=== PATIENT | female | born 1970 | race Caucasian/White ===

== ENCOUNTER 2018-10-19 16:34 | Observation (INO) | payer BC, SELFPAY ==
[2018-10-19 16:41] VITALS: BP 126/82; PULSE 66; RESP 16; TEMP 36.7; O2SAT 98; BMI 36.6
--- NOTE | 2018-10-19 16:44 | PC.NURSE ---
pt arrived with a splint to left leg and in a clamshell stretcher.
--- NOTE | 2018-10-19 16:55 | DI.RAD.S_ITS ---
PROCEDURE: XR KNEE RT 1TO2V INDICATIONS: rolled ankle,c/o ankle and knee pain,unable to bear weight TECHNIQUE: 2 views of the knee were acquired. COMPARISON: None. FINDINGS: Bones: No fractures or dislocations. No suspicious bony lesions. Scattered degenerative subchondral sclerosis and spurring. Minimal narrowing of the lateral joint space. Soft tissues: No joint effusion. No suspicious soft tissue calcifications. IMPRESSION: No fracture. Mild right knee joint degeneration. Dictated by: Og Martel M.D. on 10/19/2018 at 17:35 Approved by: Og Martel M.D. on 10/19/2018 at 17:37
--- NOTE | 2018-10-19 16:55 | DI.RAD.S_ITS ---
PROCEDURE: XR ANKLE RT 2V INDICATIONS: rolled ankle,c/o ankle and knee pain,unable to bear weight TECHNIQUE: 2 views of the ankle were acquired. COMPARISON: None. FINDINGS: Bones: Medial and lateral malleolar fractures are present with gross articular surface incongruity. There is slight widening of the medial tibiotalar joint space. Suspect posterior malleolar fracture Soft tissues: Associated soft tissue swelling IMPRESSION: Trimalleolar fracture as above. Dictated by: Og Martel M.D. on 10/19/2018 at 17:37 Approved by: Og Martel M.D. on 10/19/2018 at 17:38
--- NOTE | 2018-10-19 18:51 | ED.LOWEXIN ---
HPI - Extremity Injury (Lower) <ALLY Villegas - Last Filed: 10/19/18 21:37> General Chief Complaint: Extremity Injury, Lower Stated Complaint: GLF Time Seen by Provider: 10/19/18 17:39 Source: patient Mode of arrival: EMS Limitations: physical limitation History of Present Illness HPI Narrative: 48-year-old female with history of hypertension and high cholesterol, presents emergency department today complaining of right ankle and knee pain. She states she was stepping off a log when her ankle inverted, she immediately heard a pop and was unable to put any weight on it. She complains of associated swelling and bruising. She also states that her kneecap dislocated which has happened in the past, she was able to straighten her leg and her kneecap relocated. She denies any dizziness, syncope, chest pain, shortness of breath, numbness or tingling in her right leg, denies any other injuries or hitting her head. Patient denies taking any blood thinners. Related Data Home Medications Medication Instructions Recorded Confirmed cetirizine [Zyrtec] 10 mg PO DAILY PRN 10/19/18 10/19/18 guaifenesin [Mucinex] 600 mg PO BID PRN 10/19/18 10/19/18 metoprolol succinate 100 mg PO DAILY 10/19/18 10/19/18 pravastatin 20 mg PO DAILY 10/19/18 10/19/18 spironolactone 25 mg PO BID 10/19/18 10/19/18 Previous Rx's Medication Instructions Recorded aspirin 81 mg PO BID #60 tab 10/20/18 ondansetron 4 mg PO Q4HR PRN #10 tab 10/20/18 oxycodone 5 mg PO Q3HR PRN #30 tab 10/20/18 polyethylene glycol 3350 17 gm PO DAILY #10 ea 10/20/18 Allergies Allergy/AdvReac Type Severity Reaction Status Date / Time No Known Drug Allergies Allergy Verified 10/19/18 16:40 Review of Systems <ALLY Villegas - Last Filed: 10/19/18 21:37> Review of Systems Narrative: REVIEW OF SYSTEMS: GENERAL: Denies fever or chills. HENT: No head trauma. EYES: No double vision or vision loss. CARDIOVASCULAR: No chest pain or syncope. RESPIRATORY: No shortness of breath or cough. GASTROINTESTINAL: No nausea, vomiting, diarrhea, or constipation. GENITOURINARY: No flank pain or dysuria. MUSCULOSKELETAL: Complains of right knee and ankle pain, see HPI. INTEGUMENTARY: No rash, lesions, or pruritus. NEURO: No numbness, tingling. PSYCH: No behavior or mood changes. PFSH <ALLY Villegas - Last Filed: 10/19/18 21:37> Medical History Arthritic-like pain (Acute) Hyperlipidemia (Acute) Hypertension (Acute) Seasonal allergies (Acute) Tinnitus of both ears (Acute) Social History household members: spouse Smoking Status: Never smoker Social History household members: spouse Smoking Status: Never smoker Exam <ALLY Villegas - Last Filed: 10/19/18 21:37> Initial Vital Signs Initial Vital Signs: Vital Signs Temperature 98.1 F 10/19/18 16:41 Pulse Rate 66 10/19/18 16:41 Respiratory Rate 16 10/19/18 16:41 Blood Pressure 126/82 10/19/18 16:41 Pulse Oximetry 98 10/19/18 16:41 PHYSICAL EXAMINATION: GENERAL: Well groomed, alert, and cooperative. Answers questions promptly and appropriately. Vital signs noted. HENT: Normocephalic, atraumatic. EYES: Symmetrical, sclera white, no periorbital swelling. CARDIOVASCULAR: S1 and S2 sounds normal. Regular rate and rhythm, no murmurs, clicks, or bruits. No pedal edema. RESPIRATORY: Normal respiratory rate, trachea midline, airway patent. No stridor, nasal flaring or accessory muscle use. Lungs are clear in all george. MUSCULOSKELETAL: Right patella tenderness to palpation, moderate right knee effusion without erythema or ecchymosis. Deformity to right ankle, significant bruising to medial and lateral malleoli-limited range of motion and strength due to significant pain with movement, pedal pulses 2+ bilaterally. No lesions noted to her right leg. Equal tone and mass bilaterally. No spinal tenderness or deformities. EXTREMITIES: CMS intact. SKIN: Warm, dry, soft, appropriate color for ethnicity. No lesions, rashes, or wounds. NEURO: Alert and Oriented X 3. No sensory deficits. PSYCH: Appropriate affect and mood. <Zulma Dumont DO - Last Filed: 10/23/18 05:39> Initial Vital Signs Initial Vital Signs: Vital Signs Temperature 98.1 F 10/19/18 16:41 Pulse Rate 66 10/19/18 16:41 Respiratory Rate 16 10/19/18 16:41 Blood Pressure 126/82 10/19/18 16:41 Pulse Oximetry 98 10/19/18 16:41 Procedures <ALLY Villegas - Last Filed: 10/19/18 21:37> Orthopedic Splinting/Casting R Ankle: Side: right Lower Extremity Injury Location: lower leg and ankle Lower Extremity Immobilizer: posterior splint and stirrup splint Post splinting neuro exam: intact Post splinting vascular exam: intact Placed by: Nursing Course <ALLY Villegas - Last Filed: 10/19/18 21:37> Course Course Narrative: Dr. Vasquez was consulted after x-ray report was given. At 1840 Dr. Vasquez who is available to speak with patient and family, patient decided to be admitted for surgery in the morning as she is from [place] and does not plan to return home for another week. At this time, an IV was started, pain medications were given, and a splint was placed per Dr. Vasquez (short leg with stirrup). Orders Ordered: Discontinued Medications Acetaminophen (Tylenol) 650 mg PO Q4HR PRN PRN Reason: As Needed for Fever/Mild Pain Last Admin: 10/20/18 00:14 Dose: 650 mg Documented by: KGALLAG Hydrocodone Bitart/Acetaminophen ([place] 5/325) 1 tab PO Q4HR PRN PRN Reason: Pain, Moderate (4-6) Aspirin (Aspirin Ec) 81 mg PO BID FRANCI Last Admin: 10/20/18 20:45 Dose: 81 mg Documented by: AMIRA Benzocaine (Cepacol Lozenge) 1 each PO PRN PRN PRN Reason: Sore Throat Bisacodyl (Dulcolax) 10 mg [place] PRN PRN PRN Reason: Constipation Bupivacaine HCl/Epinephrine Bitart (Sensorcaine 0.5% W/ Epi (Pf)) 30 ml INJ NOW ONE Stop: 10/20/18 09:39 Last Admin: 10/20/18 09:38 Dose: 30 ml Documented by: RAYA Fentanyl (Sublimaze) 50 mcg IV Q5MIN PRN PRN Reason: Pain, Severe (7-10) Fentanyl (Sublimaze) 50 mcg IV Q5MIN PRN PRN Reason: Pain, Moderate (4-6) Guaifenesin (Mucinex) 600 mg PO BID PRN PRN Reason: Allergy Symptoms Last Admin: 10/20/18 13:51 Dose: 600 mg Documented by: GUTIERREZ Hydromorphone HCl (Dilaudid) 0.5 mg IV NOW ONE Stop: 10/19/18 18:57 Last Admin: 10/19/18 19:52 Dose: 0.5 mg Documented by: NANI Hydromorphone HCl (Dilaudid) 0.5 mg IV Q5MIN PRN PRN Reason: Pain, Moderate (4-6) Hydroxyzine HCl (Vistaril) 25 mg IM NOW PRN PRN Reason: Pain, Mild (1-3) Hydroxyzine Pamoate (Vistaril) 25 mg PO Q4HR PRN PRN Reason: Nausea Last Admin: 10/20/18 00:14 Dose: 25 mg Documented by: KGALLRONAL Cefazolin Sodium/Dextrose (Ancef) 2 gm in 100 mls @ 200 mls/hr IV NOW ONE Stop: 10/19/18 20:06 Last Infusion: 10/19/18 19:59 Dose: 0 mls/hr Documented by: Admin: 10/19/18 19:52 Dose: 200 mls/hr Documented by: NANI Lactated Ringer's (Lactated Ringers) 1,000 mls @ 75 mls/hr IV CONT FRANCI Last Admin: 10/19/18 23:07 Dose: 75 mls/hr Documented by: SAVANA Lactated Ringer's (Lactated Ringers) 1,000 mls @ 42 mls/hr IV CONT FRANCI Last Infusion: 10/20/18 11:30 Dose: 0 mls/hr Documented by: Admin: 10/20/18 08:40 Dose: 42 mls/hr Documented by: JOSEPH Cefazolin Sodium/Dextrose (Ancef) 2 gm in 100 mls @ 200 mls/hr IV NOW ONE Stop: 10/20/18 09:14 Last Infusion: 10/20/18 08:42 Dose: 0 mls/hr Documented by: Admin: 10/20/18 08:38 Dose: 200 mls/hr Documented by: GEORGES Acetaminophen (Ofirmev) 1,000 mg in 100 mls @ 400 mls/hr IV NOW ONE Stop: 10/20/18 09:47 Last Admin: 10/20/18 13:41 Dose: Not Given Documented by: GUTIERREZ Lactated Ringer's (Lactated Ringers) 1,000 mls @ 125 mls/hr IV CONT [facility] Last Admin: 10/20/18 12:19 Dose: 125 mls/hr Documented by: GUTIERREZ Cefazolin Sodium/Dextrose (Ancef) 1 gm in 50 mls @ 200 mls/hr IV Q8H [facility] Stop: 10/21/18 01:14 Last Infusion: 10/20/18 18:07 Dose: 0 mls/hr Documented by: Admin: 10/20/18 17:22 Dose: 200 mls/hr Documented by: AMIRA Loratadine (Claritin) 10 mg PO DAILY PRN PRN Reason: Allergic Symptoms Last Admin: 10/20/18 13:53 Dose: 10 mg Documented by: GUTIERREZ Lorazepam (Ativan) 0.5 mg IV Q6HR PRN PRN Reason: nausea/vomiting Lorazepam (Ativan) 0.5 mg PO Q6HR PRN PRN Reason: Anxiety Last Admin: 10/20/18 20:47 Dose: 0.5 mg Documented by: AMIRA Magnesium Hydroxide (Milk Of Magnesia) 30 ml PO BEDTIME [facility] Last Admin: 10/20/18 20:45 Dose: Not Given Documented by: AMIRA Meperidine HCl (Demerol) 25 mg IV Q5MIN PRN PRN Reason: Pain or shivering Metoclopramide HCl (Reglan) 10 mg IV NOW PRN PRN Reason: Nausea And Vomiting Metoprolol Succinate (Toprol Xl) 100 mg PO DAILY [facility] Midazolam HCl (Versed) 2 mg IV NOW ONE Stop: 10/20/18 07:25 Last Admin: 10/20/18 13:40 Dose: Not Given Documented by: GUTIERREZ Ondansetron HCl (Zofran) 4 mg IV NOW ONE Stop: 10/19/18 18:57 Last Admin: 10/19/18 19:52 Dose: 4 mg Documented by: NANI Ondansetron HCl (Zofran) 4 mg IV Q4HR PRN PRN Reason: Nausea And Vomiting Ondansetron HCl (Zofran) 4 mg IV NOW PRN PRN Reason: Nausea And Vomiting Ondansetron HCl (Zofran Odt) 4 mg PO Q4HR PRN PRN Reason: Nausea And Vomiting Oxycodone HCl (Percolone) 5 mg PO Q3HR PRN PRN Reason: Pain, Moderate (4-6) Oxycodone HCl (Percolone) 5 mg PO Q30MIN PRN PRN Reason: Mild or moderate pain Oxycodone HCl (Percolone) 5 mg PO Q3HR PRN PRN Reason: Pain, Moderate (4-6) Last Admin: 10/20/18 17:48 Dose: 5 mg Documented by: Admin: 10/20/18 12:23 Dose: 5 mg Documented by: GUTIERREZ Polyethylene Glycol (Miralax) 17 gm PO DAILY [facility] Pravastatin Sodium (Pravachol) 20 mg PO DAILY [facility] Sodium Chloride (Normal Saline 0.9% Flush) 10 ml IV PRN PRN PRN Reason: Flush Sodium Chloride (Normal Saline 0.9% Flush) 10 ml IV BID [facility] Last Admin: 10/20/18 13:41 Dose: Not Given Documented by: GUTIERREZ Spironolactone (Aldactone) 25 mg PO BID [facility] Last Admin: 10/20/18 20:46 Dose: 25 mg Documented by: AMIRA Reevaluation(s) Reevaluation #1: Patient re-evaluated after splint placement, CMS intact. Consultations Consultation #1: Patient was staffed with Dr. Julia Vasquez, orthopedic surgeon was consulted. Vital Signs Vital signs: Vital Signs - 8 hr 10/19/18 16:41 Temperature 98.1 F Pulse Rate 66 Respiratory Rate 16 Blood Pressure 126/82 Pulse Oximetry 98 <Zulma Dumont, DO - Last Filed: 10/23/18 05:39> Orders Ordered: Discontinued Medications Acetaminophen (Tylenol) 650 mg PO Q4HR PRN PRN Reason: As Needed for Fever/Mild Pain Last Admin: 10/20/18 00:14 Dose: 650 mg Documented by: KGALLAG Hydrocodone Bitart/Acetaminophen ([place] 5/325) 1 tab PO Q4HR PRN PRN Reason: Pain, Moderate (4-6) Aspirin (Aspirin Ec) 81 mg PO BID FRANCI Last Admin: 10/20/18 20:45 Dose: 81 mg Documented by: AMIRA Benzocaine (Cepacol Lozenge) 1 each PO PRN PRN PRN Reason: Sore Throat Bisacodyl (Dulcolax) 10 mg [place] PRN PRN PRN Reason: Constipation Bupivacaine HCl/Epinephrine Bitart (Sensorcaine 0.5% W/ Epi (Pf)) 30 ml INJ NOW ONE Stop: 10/20/18 09:39 Last Admin: 10/20/18 09:38 Dose: 30 ml Documented by: RAYA Fentanyl (Sublimaze) 50 mcg IV Q5MIN PRN PRN Reason: Pain, Severe (7-10) Fentanyl (Sublimaze) 50 mcg IV Q5MIN PRN PRN Reason: Pain, Moderate (4-6) Guaifenesin (Mucinex) 600 mg PO BID PRN PRN Reason: Allergy Symptoms Last Admin: 10/20/18 13:51 Dose: 600 mg Documented by: GUTIERREZ Hydromorphone HCl (Dilaudid) 0.5 mg IV NOW ONE Stop: 10/19/18 18:57 Last Admin: 10/19/18 19:52 Dose: 0.5 mg Documented by: NANI Hydromorphone HCl (Dilaudid) 0.5 mg IV Q5MIN PRN PRN Reason: Pain, Moderate (4-6) Hydroxyzine HCl (Vistaril) 25 mg IM NOW PRN PRN Reason: Pain, Mild (1-3) Hydroxyzine Pamoate (Vistaril) 25 mg PO Q4HR PRN PRN Reason: Nausea Last Admin: 10/20/18 00:14 Dose: 25 mg Documented by: KGALLAG Cefazolin Sodium/Dextrose (Ancef) 2 gm in 100 mls @ 200 mls/hr IV NOW ONE Stop: 10/19/18 20:06 Last Infusion: 10/19/18 19:59 Dose: 0 mls/hr Documented by: Admin: 10/19/18 19:52 Dose: 200 mls/hr Documented by: NANI Lactated Ringer's (Lactated Ringers) 1,000 mls @ 75 mls/hr IV CONT FRANCI Last Admin: 10/19/18 23:07 Dose: 75 mls/hr Documented by: SAVANA Lactated Ringer's (Lactated Ringers) 1,000 mls @ 42 mls/hr IV CONT FRANCI Last Infusion: 10/20/18 11:30 Dose: 0 mls/hr Documented by: Admin: 10/20/18 08:40 Dose: 42 mls/hr Documented by: JOSEPH Cefazolin Sodium/Dextrose (Ancef) 2 gm in 100 mls @ 200 mls/hr IV NOW ONE Stop: 10/20/18 09:14 Last Infusion: 10/20/18 08:42 Dose: 0 mls/hr Documented by: Admin: 10/20/18 08:38 Dose: 200 mls/hr Documented by: GEORGES Acetaminophen (Ofirmev) 1,000 mg in 100 mls @ 400 mls/hr IV NOW ONE Stop: 10/20/18 09:47 Last Admin: 10/20/18 13:41 Dose: Not Given Documented by: GUTIERREZ Lactated Ringer's (Lactated Ringers) 1,000 mls @ 125 mls/hr IV CONT FRANCI Last Admin: 10/20/18 12:19 Dose: 125 mls/hr Documented by: GUTIERREZ Cefazolin Sodium/Dextrose (Ancef) 1 gm in 50 mls @ 200 mls/hr IV Q8H [facility]ANCI Stop: 10/21/18 01:14 Last Infusion: 10/20/18 18:07 Dose: 0 mls/hr Documented by: Admin: 10/20/18 17:22 Dose: 200 mls/hr Documented by: AMIRA Loratadine (Claritin) 10 mg PO DAILY PRN PRN Reason: Allergic Symptoms Last Admin: 10/20/18 13:53 Dose: 10 mg Documented by: GUTIERREZ Lorazepam (Ativan) 0.5 mg IV Q6HR PRN PRN Reason: nausea/vomiting Lorazepam (Ativan) 0.5 mg PO Q6HR PRN PRN Reason: Anxiety Last Admin: 10/20/18 20:47 Dose: 0.5 mg Documented by: AMIRA Magnesium Hydroxide (Milk Of Magnesia) 30 ml PO BEDTIME FRANCI Last Admin: 10/20/18 20:45 Dose: Not Given Documented by: AMIRA Meperidine HCl (Demerol) 25 mg IV Q5MIN PRN PRN Reason: Pain or shivering Metoclopramide HCl (Reglan) 10 mg IV NOW PRN PRN Reason: Nausea And Vomiting Metoprolol Succinate (Toprol Xl) 100 mg PO DAILY [facility] Midazolam HCl (Versed) 2 mg IV NOW ONE Stop: 10/20/18 07:25 Last Admin: 10/20/18 13:40 Dose: Not Given Documented by: GUTIERREZ Ondansetron HCl (Zofran) 4 mg IV NOW ONE Stop: 10/19/18 18:57 Last Admin: 10/19/18 19:52 Dose: 4 mg Documented by: NANI Ondansetron HCl (Zofran) 4 mg IV Q4HR PRN PRN Reason: Nausea And Vomiting Ondansetron HCl (Zofran) 4 mg IV NOW PRN PRN Reason: Nausea And Vomiting Ondansetron HCl (Zofran Odt) 4 mg PO Q4HR PRN PRN Reason: Nausea And Vomiting Oxycodone HCl (Percolone) 5 mg PO Q3HR PRN PRN Reason: Pain, Moderate (4-6) Oxycodone HCl (Percolone) 5 mg PO Q30MIN PRN PRN Reason: Mild or moderate pain Oxycodone HCl (Percolone) 5 mg PO Q3HR PRN PRN Reason: Pain, Moderate (4-6) Last Admin: 10/20/18 17:48 Dose: 5 mg Documented by: Admin: 10/20/18 12:23 Dose: 5 mg Documented by: GUTIERREZ Polyethylene Glycol (Miralax) 17 gm PO DAILY [facility] Pravastatin Sodium (Pravachol) 20 mg PO DAILY [facility] Sodium Chloride (Normal Saline 0.9% Flush) 10 ml IV PRN PRN PRN Reason: Flush Sodium Chloride (Normal Saline 0.9% Flush) 10 ml IV BID [facility] Last Admin: 10/20/18 13:41 Dose: Not Given Documented by: GUTIERREZ Spironolactone (Aldactone) 25 mg PO BID [facility] Last Admin: 10/20/18 20:46 Dose: 25 mg Documented by: AMIRA Vital Signs Vital signs: Vital Signs - 8 hr 10/19/18 16:41 Temperature 98.1 F Pulse Rate 66 Respiratory Rate 16 Blood Pressure 126/82 Pulse Oximetry 98 MDM - Extremity Injury (Lower) <ALLY Villegas - Last Filed: 10/19/18 21:37> Medical Records Attestation: I reviewed the patient's medical records. Lab Data Attestation: I reviewed the patient's lab results. Imaging Data R Knee: Radiologist's impression: [address] [address] XRay Report Signed Patient: Aneta LeMR#: [id number] : 1970Acct:[id number] Age/Sex: 48 / FDate of Service: 10/19/18 Loc: ED Accession Number: [id number] Procedure: XR knee RT 1to2V Ordering Provider: Zulma Dumont D.O. PROCEDURE: XR KNEE RT 1TO2V INDICATIONS: rolled ankle,c/o ankle and knee pain,unable to bear weight TECHNIQUE: 2 views of the knee were acquired. COMPARISON: None. FINDINGS: Bones: No fractures or dislocations. No suspicious bony lesions. Scattered degenerative subchondral sclerosis and spurring. Minimal narrowing of the lateral joint space. Soft tissues: No joint effusion. No suspicious soft tissue calcifications. IMPRESSION: No fracture. Mild right knee joint degeneration. Dictated by: Og Martel M.D. on 10/19/2018 at 17:35 Approved by: Og Martel M.D. on 10/19/2018 at 17:37 R Ankle: Radiologist's impression: [address] [address] XRay Report Signed Patient: Aneta LeMR#: [id number] : 1970Acct:[id number] Age/Sex: 48 / FDate of Service: 10/19/18 Loc: ED Accession Number: [id number] Procedure: XR ankle RT 2V Ordering Provider: Zulma Dumont D.O. PROCEDURE: XR ANKLE RT 2V INDICATIONS: rolled ankle,c/o ankle and knee pain,unable to bear weight TECHNIQUE: 2 views of the ankle were acquired. COMPARISON: None. FINDINGS: Bones: Medial and lateral malleolar fractures are present with gross articular surface incongruity. There is slight widening of the medial tibiotalar joint space. Suspect posterior malleolar fracture Soft tissues: Associated soft tissue swelling IMPRESSION: Trimalleolar fracture as above. Dictated by: Og Martel M.D. on 10/19/2018 at 17:37 Approved by: Og Martel M.D. on 10/19/2018 at 17:38 [facility] Narrative Medical decision making narrative: Differential includes ago fracture (as seen on x-ray, x-ray results are consistent with tenderness on exam), less likely DVT as injury is just occurred, less likely infection due to lack of systemic symptoms. Surgical consult as fractures are unstable. Patient admitted to acute care. Discharge Plan Departure Patient Disposition: Admitted As Inpatient Clinical Impression: Closed trimalleolar fracture Qualifiers: Encounter type: initial encounter Laterality: right Qualified Code(s): S82.851A - Displaced trimalleolar fracture of right lower leg, initial encounter for closed fracture Discharge Date/Time: 10/19/18 20:00 Instructions: DI for Heart Failure, DI for Open Reduction Internal Fixation Surgery Admit Date/Time: 10/19/18 19:03 Admit Provider: Anna Vasquez Forms: Surgery Discharge
--- NOTE | 2018-10-19 19:25 | PM.PREOP ---
Pre-operative Note Interval Note History & Physical reviewed/Exam performed by Physician: Yes Changes to H&P: No
--- NOTE | 2018-10-19 19:28 | P.HP_ITS ---
History of Present Illness History of Present Illness Date Patient Seen: 10/19/18 Time Patient Seen: 19:28 Chief complaint: GLF Narrative: This is a pleasant 49-year-old female [place] her right knee cap dislocated and she noted the acute onset of severe right ankle pain after a fall. She was brought to [facility] Emergency Room. 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 She notes fairly severe right ankle pain and deformity. Patient History Social History Smoking Status: Never smoker Comment: She has a history of hypertension and high cholesterol Family & Social History Safety & Behavioral: Feels Safe in Current Yes Environment Been Physically Hurt or No Threatened By a Person Tobacco & Substance use: Smoking Status Never smoker alcohol intake frequency other Substance Use Type does not use Comment: She lives in a [place] town in [place] but is planning to be in the area for about a week. Meds Home Medications and Allergies Home Medications Medication Instructions Recorded Confirmed Type cetirizine [Zyrtec] 10 mg PO DAILY PRN 10/19/18 10/19/18 History guaifenesin [Mucinex] 600 mg PO BID PRN 10/19/18 10/19/18 History metoprolol succinate 100 mg PO DAILY 10/19/18 10/19/18 History pravastatin 20 mg PO DAILY 10/19/18 10/19/18 History spironolactone 25 mg PO BID 10/19/18 10/19/18 History Allergies Allergy/AdvReac Type Severity Reaction Status Date / Time No Known Drug Allergies Allergy Verified 10/19/18 16:40 Review of Systems Review of Systems Narrative: She notes that she has been feeling well overall, she denies a history of loss of consciousness, she notes right knee and right ankle pain but denies neck pain low back pain any pulmonary or cardiac issues or GI issues Exam Vital Signs (past 8 hours): - 10/19/18 16:41 Temperature 98.1 F Pulse Rate 66 Respiratory Rate 16 Blood Pressure 126/82 Pulse Oximetry 98 Oxygen Delivery Method Room Air Narrative Exam Narrative: She is resting comfortably in bed, HEENT is benign, lungs are clear, cor regular rate and rhythm, abdomen soft and benign, right knee shows an acceptably aligned patella with moderate swelling her right ankle shows external rotation deformity and moderate swelling in the right ankle with some tenting of the skin she is able to fire her toe flexors and extensors with trace motion, the left lower extremity is unremarkable bilateral upper extremities are unremarkable Objective ECG Impression: Her right ankle x-rays show a fracture dislocation of the right ankle trimalleolar with displacement. I explained her that she has an unstable ankle fracture dislocation. We had a fairly extensive discussion today she is having ongoing significant pain into the right ankle and she does have significant swelling. After extensive discussion we decided that she should proceed with open reduction internal fixation of her right ankle. I plan to admit her for elevation and appropriate pain management and then proceed with open reduction internal fixation likely tomorrow morning. Procedure alternatives risks benefits and complications were discussed in detail. Unfortunately she does need to fly back to [place] in about a week or so. We discussed DVT risk and prophylaxis and I am recommending low-dose aspirin and will further discuss her plan for transport after her ankle has been fixed. Options risks benefits and complications were discussed in detail she leonor segal and agrees and we are going to proceed with this.
--- NOTE | 2018-10-19 19:46 | PC.NURSE ---
pt has posterior and stirrup splint place to rt lower leg/ankle per dr akbar vo.
[2018-10-19] MEDS: CEFAZOLIN 2 GM/100 ML FROZ.PIGGY IV (19:52)
[2018-10-19] MEDS: HYDROMORPHONE 0.5 MG INJ IV (19:52)
[2018-10-19] MEDS: ONDANSETRON 4 MG/2 ML INJ IV (19:52)
[2018-10-19 20:32] VITALS: BP 88/61; PULSE 63; RESP 16; TEMP 36.8; O2SAT 93
[2018-10-19 21:02] VITALS: BMI 36.6
[2018-10-19] MEDS: LACTATED RINGERS 1,000 ML 75 ML IV (23:07)
[2018-10-19 23:35] VITALS: BP 137/68; PULSE 58; RESP 16; TEMP 36.4; O2SAT 99
--- NOTE | 2018-10-19 23:53 | PC.NURSE ---
admit/evening shift note- Patient arrived to room from ER via stretcher. Jira Developer board used to transfer to bed. Patient alert and oriented and able to make needs knwon to staff. admiision questions done, lmedications reviewed, and physical assessment completed. Oriented patient to bed and bed controls, room, bathroom, lights, phone, menu, and call latif/tv remote. safety measures in place. patient agress to call for assistance. call latif and phone within reach. Will continue to monitor.
[2018-10-20] VITALS (13 sets, daily range): BP systolic 99–126; BP diastolic 47–76; PULSE 53–81; RESP 10–18; TEMP 36.2–36.8; O2SAT 91–98
[2018-10-20] MEDS: hydrOXYzine pamoate 25 MG CAPSULE PO (00:14)
[2018-10-20] MEDS: ACETAMINOPHEN 325 MG TABLET 650 MG PO (00:14)
--- NOTE | 2018-10-20 08:16 | PC.NURSE ---
Day shift: Pt off unit for surgery at approx 0800.
[2018-10-20] MEDS: CEFAZOLIN 2 GM/100 ML FROZ.PIGGY IV (08:38)
[2018-10-20] MEDS: LACTATED RINGERS 1,000 ML 42 ML IV (08:40)
--- NOTE | 2018-10-20 09:15 | SUR.OPER ---
Supine on padded OR bed, head on pillow, arms secured on padded arm boards at <90 degrees abduction, legs uncrossed, safety belt at thigh, tape over blanket over lower non-operative leg. sandbag under right hip.
[2018-10-20] MEDS: BUPIVACAINE 0.5% W/ EPI (PF) VIAL 30 ML INJ (09:38)
--- NOTE | 2018-10-20 11:29 | SUR.PHASEI ---
stable pacu stay, report called pt transported up to room 229 via bed.
--- NOTE | 2018-10-20 11:40 | PC.NURSE ---
Day shift: Pt back on AC unit from PACU at approx 1140. Awake. On 1L NC 93%. Has been in room since yesterday. Agrees to not get OOB w/o help from staff.
[2018-10-20] MEDS: LACTATED RINGERS 1,000 ML 125 ML IV (12:19)
[2018-10-20] MEDS: OXYCODONE IR 5 MG TABLET PO ×2 (12:23→17:48)
[2018-10-20] MEDS: guaiFENesin ER 600 MG TAB PO (13:51)
[2018-10-20] MEDS: LORATADINE 10 MG TABLET PO (13:53)
--- NOTE | 2018-10-20 14:01 | PM.OP.1 ---
Operative Date/Time/Diagnoses Date of procedure: 10/20/18 Time of procedure: 09:01 Pre-op diagnosis: Right trimalleolar ankle fracture open reduction internal fixation Post-op diagnosis: same Procedure & Clinicians Procedure: Right ankle fracture open reduction internal fixation trimalleolar Same procedure as scheduled: Yes Indications: This is a 48-year-old female who had a lateral dislocation of her right patella fell and sustained a right displaced trimalleolar ankle fracture. She had significant pain and immobility and was admitted for pain control in anti nausea medication and fixation of her right ankle. Surgeon: Anna Vasquez Anesthesia Type: General Operative Notes Findings: Comminuted right ankle fracture, adequate quality bone, anatomic reduction Closure Type: primary Specimen(s): none sent Prosthetic devices, grafts, tissues, transplants, or devices: A 0 Synthes small fragment plate and multiple screws Estimated Blood Loss (mL): 50 Blood products transfused: none Tourniquet time (min): 90 Procedure in detail: Patient was brought to the operating room and underwent the induction of a general anesthesia. Antibiotics were given and a dining room server-out was done. Her right lower extremity was prepped draped standard sterile fashion. Tourniquet was elevated to 250 mm of mercury. Lateral skin incision was made over the distal fibula dissection was carried out through skin and subcutaneous tissues. Gelpi retractors were placed. The fibular fracture was carefully defined meticulously irrigated with normal saline and then fixed with a lag screw and a 5 hole 1/3 tubular AO plate. Reduction was confirmed fluoroscopically. Attention was then directed to the medial side. A medial incision was made dissection was carried out through skin and subcutaneous tissues. The medial malleolus was anatomically reduced and fixed with 2 screws. The wounds were meticulously irrigated with normal saline. Mini C-arm was used for fluoroscopic pictures which confirmed anatomic reduction and acceptable positioning of the hardware. The joint was meticulously irrigated with normal saline. The periosteum was closed with interrupted Vicryl. Subcutaneous tissues were closed with interrupted Vicryl. The skin was closed with skin randi. Tourniquet was deflated hemostasis was achieved. The patient was placed in a short leg splint and transferred to the recovery room in satisfactory condition. Complications none. Complications: none Post-operative Condition: stable Disposition: Acute Care Plan for aftercare: Right knee range of motion brace to prevent lateral subluxation of the patella, partial weight-bearing on the right lower extremity. Return to clinic in 10-14 days for right ankle x-rays out of splint and probable short leg cast for 1 month. Right knee patellar stabilization if required in the long-term. Baby aspirin for DVT prophylaxis.
--- NOTE | 2018-10-20 15:15 | PT.IIE ---
Surgery Performed Operation Date: 10/20/18 07:00 Actual Procedures p ORIF Ankle Fracture(Right) - Anna Vasquez MD Medical History (Last Reviewed 10/19/18 @ 21:25 by ALYL Villegas) Arthritic-like pain (Acute) Hyperlipidemia (Acute) Hypertension (Acute) Seasonal allergies (Acute) Tinnitus of both ears (Acute) Physical Therapy Inpatient Evaluation/Re-Eval M1 PT/OT-IP Prior Functional Status Start: 10/20/18 17:08 Freq: NEEDED Status: Active Protocol: Document 10/20/18 15:15 AB (Rec: 10/20/18 17:59 AB [id number]) Medical Review Prior Functional Status Medical History Reviewed Yes Communication able to make needs known Mobility and Gait pt stated that she is independent with all mobilities and ambulation without AD Social History Household Members spouse Living Arrangements House Number of Floors (Floors) Two Floors Number of Stairs To Enter/Railing? 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 pt will be staying at a friend's house which is one level without steps to enter. pt does not know much about friend's home set up/shower/ toilet. M2 PT-IP Current Condition Start: 10/20/18 17:08 Freq: NEEDED Status: Active Protocol: Document 10/20/18 15:15 AB (Rec: 10/20/18 17:59 AB [id number]) Physical Therapy Current Condition Current Condition Evaluation Date 10/20/18 Treatment Diagnosis R ankle fx s/p ORIF; difficulty in walking Onset Date 10/19/18 Precautions Brace order ROM knee brace RLE and dispensed to pt today Weight Bearing Status Weight Bearing Status Touch Down Weight Bearing Allowed Weight Bearing Amount (enter % RLE TDWB or #) (%) M3 PT-IP Subjective Start: 10/20/18 17:08 Freq: NEEDED Status: Active Protocol: Document 10/20/18 15:15 AB (Rec: 10/20/18 17:59 AB [id number]) Subjective Physical Therapy Visit Type Type Initial Evaluation Visit Start Time 15:15 Visit Stop Time 16:46 Total Visit Minutes 91 Number of [employer]IV[employer] DIRECTOR Visits 0 Physical Therapy Visit Comments Patient Comments pt agreeable to do PT Therapy Pain Assessment Pain When Pain Assessed At Rest Location Right Thigh Scale Used pain scale not stated Pain Management Techniques Timing of Activity with Medications M4 PT-IP Mobility and Gait Start: 10/20/18 17:08 Freq: NEEDED Status: Active Protocol: Document 10/20/18 15:15 AB (Rec: 10/20/18 17:59 AB [id number]) PT-Bed Mobility Assessment Supine to Sit Supine to Sit Standby Assistance Sit to Supine Sit to Supine Moderate Assistance Scooting Scooting to Edge of Bed Standby Assistance PT-Transfer Assessment Sit to and From Stand Sit to and from Stand Contact Guard Assistance, Minimal Assistance,1 Person Assistance Equipment Transfer Assistive Device Gait Belt,Front Wheeled Walker Orthotic/Prosthetic Devices or Brace: Yes Transfers Transfer Destination Bed,Bedside Commode Transfer Technique Stand Step Pivot Transfer Ability Level of Assist Contact Guard Assistance, Minimal Assistance Comments Mobility Comments pt requesting to use the toilet and completed sit to stand from EOB CGA to min A and completed stand pivot transfer using FWW bed to bedside commode. pt completed sit to stand from bedside commode min A and was able to maintain standing using FWW for support CGA while completing hygiene care. pt transferred back to bed min A using FWW. completed sit to supine min to mod A and cues. fitted pt with hinged knee brace per doctor's order. pt agreed to get up again and completed supine to sit SBA; completed ambulation NWB RLE using FWW ~ 10 ft min A adn cues. pt went back to bed completed sit to supine mod A and cues. positioned pt in bed. call light and table placed within reach. informed pt and pt's spouse regarding equipement needs and DME info/list provided. pt will need: W/C, FWW, bedside commode/RTS with handles; tub transfer bench and a ramp to be installed into the house. pt and spouse understood and agreed. Gait Assessment Gait Gait Assistance Required: Minimum Assistance Distance (Feet) 10 Able to Maintain Weight Bearing Status Yes During Gait Assistive Devices Assistive Device Gait Belt,Front Wheeled Walker Orthotic/Prosthetic Devices or Brace: Yes Gait Deviations General Gait Pattern Step-to Gait Factors Limiting Gait Function Factors Limiting Gait Function Decreased Activity Tolerance, Decreased Strength,Limited Range of Motion PT-Balance Assessment Sitting Balance and Reactions Static Sitting Balance Ability Good Dynamic Sitting Balance Ability Good Standing Balance and Reactions Static Standing Balance Ability Fair Dynamic Standing Balance Ability Fair Device Used FWW M5 PT-IP Objective Assessments Start: 10/20/18 17:08 Freq: NEEDED Status: Active Protocol: Document 10/20/18 15:15 AB (Rec: 10/20/18 17:59 AB [id number]) Orientation Orientation/Cognition Level of Alertness Alert Orientation Name,Age,Birthday,Month,Date, Year,Day of Week,Place, Situation Language Function Ability No Deficits Noted Safety Awareness Understands Safety Issues Memory Description No Deficits Noted Gross Range of Motion Lower Extremity ROM Assessment Right Impaired Impairments R ankle on cast Strength Lower Extremity Strength Assessment Right Impaired Knee 3+/5 Ankle n/t Coordination Assessment Gross Coordination Gross Coordination WNL Sensation Assessment Sensation Gross Sensation WNL Muscle Tone Muscle Tone WNL Yes M6 PT-IP Treatment Start: 10/20/18 17:08 Freq: NEEDED Status: Active Protocol: Document 10/20/18 15:15 AB (Rec: 10/20/18 17:59 AB [id number]) Physical Therapy Treatment Education Education Provided Precautions,Weight Bearing Status,Safety M7 PT-IP Assessment and Plan Start: 10/20/18 17:08 Freq: NEEDED Status: Active Protocol: Document 10/20/18 15:15 AB (Rec: 10/20/18 17:59 AB [id number]) PT Summary Assessment and Plan Potential Rehabilitation Potential Good Status of Condition at Evaluation Stable Summary Impairments Pain,ROM,Strength,Balance,Bed Mobility,Transfers,Gait, Activity Tolerance Assessment Summary pt requiring CGA to min A with mobility and spouse will assist pt at home. informed pt and spouse regarding equipement needs and both understood and agreed. Goals Bed Mobility Goal Independent Transfer Goal Standby Assistance,Front Wheeled Walker Gait Goal Standby Assistance,Front Wheel Walker Gait Distance 20 Days to Meet Goals 5 Frequency of Treatment Frequency Of Treatment Twice a Day Treatment Plan Physical Therapy Treatment Plan Bed Mobility Training,Transfer Training,Gait Training, Therapeutic Exercise,Balance Retraining,Post Op Education, Discharge Planning,Hot or Cold Pack,Neuromuscular Re-ed, Coordination Retraining,Manual Therapy Other Recommendations and Next Treatment transfers, ambulation, Focus caregiver training Recommendations To Nursing Amount of Assist Needed 1 Person Assist Discharge Recommendations PT Discharge Recommendations Home with 05/09 Assist,Home Health Equipment Needed for Home Before w/c; FWW; tub transfer bench; Discharge bedside commode
--- NOTE | 2018-10-20 16:30 | CM.DANOTE ---
Addendum entered by Nicky Oconnor LPN 10/21/18 09:08: A check in this morning shows that PT did work with pt and she was ok'd for home last evening by Dr. Vasquez. Evening RN notes show that she did d/c with her . Original Note: Discharge Planning/Care Management DCP: assessment: initiated: case receive, EMR reviewed. Pt in surgery today with Dr. Vasquez after a fall and need for ORIF ankle. Pt is a 48 year old female who admitted to last night after a ground level fall. Admitted to orthopedic service. Discussion with Dr. Vasquez reveals that she intends to keep pt a couple of days with plan to return home to [place] when stable for same. Payer: [facility] out of state Regence: JANUSZ Bang confirms that no clinical will need to be sent until Monday for this DCPlanner need not do this as per weekend protocol and CMsp will follow up on Monday as per the dept process. Admission status: INPT: confirmed by JANUSZ Bang after her discussion with Dr. Vasquez P: see pt tomorrow to continue the assessment of d/c needs process. Discharge Assessment Start: 10/20/18 16:29 Freq: Status: Active Protocol: Document 10/20/18 16:29 ITV (Rec: 10/20/18 16:30 ITV [id number]) Discharge Planning Assessment Advance Directives? No History Provided By Medical Record Prior Living Arrangements House Household Members spouse Is patient alert and oriented? Yes Review Status In Process
[2018-10-20] MEDS: CEFAZOLIN 1 GM/50 ML FROZ.PIGGY IV (17:22)
[2018-10-20] MEDS: ASPIRIN EC 81 MG TABLET PO (20:45)
[2018-10-20] MEDS: SPIRONOLACTONE 25 MG TABLET PO (20:46)
[2018-10-20] MEDS: LORazepam 0.5 MG TABLET PO (20:47)
--- NOTE | 2018-10-20 21:26 | PC.NURSE ---
shift summary- Pt fitted pt with immobilizer brace to right knee/leg. Worked with PT in room. Up to BSC to void 1000mL clear yellow urine. Dr Vasquez in to see pt and gave order to discharge. BP 126/71, HR-75. Obtained form for DMV for temp [facility] accessible placard. Removed LFA IV. All discharge documents and Rx's given to pt. Wheelchair to exit, with pt.
--- NOTE | 2018-11-09 12:19 | PC.NURSE ---
late entry: Lactated Ringers 10/19 2330 stopped 10/20 1203 Lactate Ringers 10/20 1202 stopped 10/20 2125
== END 2018-10-20 21:26 | disposition home or self-care (01) ==
LOC: ED 18:59 → AC 19:39
PROVIDERS: Admitting Provider Orthopaedic Surgery; Emergency Provider Nurse Practitioner; Visit Provider Orthopaedic Surgery
PROC: 0SSF04Z Reposition Right Ankle Joint with Internal Fixation Device, Open Approach (ICD-10-PCS; CPT 27822; principal; 2018-10-20 07:00)
DX: S82.851A Displaced trimalleolar fracture of right lower leg, initial encounter for closed fracture (principal); M25.571 Pain in right ankle and joints of right foot; E78.5 Hyperlipidemia, unspecified; I10 Essential (primary) hypertension; W18.09XA Striking against other object with subsequent fall, initial encounter; M22.01 Recurrent dislocation of patella, right knee
CPT/HCPCS: 27822; 29515; 36591; 73560; 73600; 94760; 96361; 96365; 96375; 96376; 97162; 97530; 99283; 99285; G0378; J0690; J1100; J1170; J2250; J2405; J2704; J3010